=== PATIENT | male | born 1940 | race Caucasian/White ===

== ENCOUNTER 2020-12-08 16:23 | Observation (INO) | payer MEDICARE ==
[~2020-12-08] VITALS: Ht 170.2 cm; Wt 81.0 kg
[2020-12-08] MEDS ORDERED: ASPIRIN81 MG PO (18:30)
[2020-12-08] MEDS ORDERED: INDAPAMIDE1.25 MG PO (18:31)
[2020-12-08] MEDS ORDERED: HYDROXYZINE HCL25 MG PO (18:32)
[2020-12-08 19:49] LABS: BUN/CREATININE RATIO 15 (0-10)
[2020-12-09 04:18] LABS: RED BLOOD COUNT 4.85 M/UL (4.20-5.50); WHITE BLOOD COUNT 7.1 K/UL (4.5-11.0)
[2020-12-09 04:30] LABS: BUN/CREATININE RATIO 14 (0-10)
[2020-12-09] MEDS ORDERED: KEPPRA 500 MG500 MG PO (17:38)
[2020-12-09] MEDS ORDERED: MECLIZINE HCL25 MG PO (17:38)
[2020-12-09] MEDS ORDERED: ATORVASTATIN CA20 MG PO (17:38)
== END 2020-12-09 18:41 | disposition home or self-care (01) ==
LOC: MED SURG 4 17:10
PROVIDERS: Physician Assistant; ADMIT Internal Medicine
DX: I65.21 Occlusion and stenosis of right carotid artery (principal); I10 Essential (primary) hypertension; Z85.820 Personal history of malignant melanoma of skin; Z79.82 Long term (current) use of aspirin; Z79.899 Other long term (current) drug therapy; Z20.822 Contact with and (suspected) exposure to COVID-19
CPT/HCPCS: 36415; 70551; 80048; 80307; 81001; 82550; 82553; 83605; 84484; 85025; 93005; 95819; 96372; 97162; 97165; G0378; G0379; J1644; J7030; U0002